=== PATIENT | female | born 2000 | race Caucasian/White ===

== ENCOUNTER 2024-10-16 08:19 | Emergency (ER) | payer BC, OTHER, SELFPAY ==
[2024-10-16 08:29] VITALS: BP 121/67; PULSE 62; RESP 16; TEMP 36.6; O2SAT 99
--- NOTE | 2024-10-16 08:31 | ED_ITS ---
HPI - Female Genitourinary General Chief complaint: Urogenital-Female Stated complaint: UTI SYMPTOMS Time Seen by Provider: 10/16/24 08:31 Source: patient Mode of arrival: ambulatory Limitations: no limitations History of Present Illness HPI Narrative: Aylin is a 23-year-old female patient presenting to the clinic today with complaints of possible UTI. She reports she is having some left-sided low back pain and pelvic pressure. No fevers or chills. States that she does have some associated nausea. Has taken azo for her symptoms. Has had burning, frequency, and urgency x 4 days. Denies any vaginal discharge or odor. Last menstrual period was a week and half ago. She denies any concern for or STIs. No history kidney stones. Related Data Allergies Allergy/AdvReac Type Severity Reaction Status Date / Time steroids AdvReac Intermediate Vomiting Uncoded 10/16/24 08:38 Review of Systems Review of Systems: Pertinent positives per HPI. Patient denies any fever, chills, rash, headache, visual changes, dizziness, cough, runny nose, sore throat, shortness of breath, chest pain, palpitations, vomiting, diarrhea, constipation, abdominal pain, PMFSH Comments At the time of my signature, I reviewed and agree with the nursing past medical, surgical, social, and family history. There is no relevant family history pertinent to the patient complaint. Exam Narrative: General: Well-developed, well nourished, in no apparent distress. Head: Normocephalic, atraumatic. Cardio: Regular rate and rhythm, s1 and s2 normal, no murmur appreciated. Resp: Clear to auscultation bilaterally, no rhonchi, rales, wheezing or rubs. Abdomen: Soft, pliable, bowel sounds present in all quadrants, suprapubic tender to palpation, no organomegly, left CVAT tenderness. Course Course Emergency Course: Portions of this record may have been created with voice recognition software. Level of Care: Express Care Visit Vital Signs Vital signs: Vital Signs Temperature 36.6 C 10/16/24 08:29 Pulse Rate 62 10/16/24 08:29 Respiratory Rate 16 10/16/24 08:29 Blood Pressure 121/67 10/16/24 08:29 Pulse Oximetry 99 10/16/24 08:29 Oxygen Delivery Room Air 10/16/24 08:29 Temperature 36.6 C 10/16/24 08:29 Pulse Rate 62 10/16/24 08:29 Respiratory Rate 16 10/16/24 08:29 Blood Pressure 121/67 10/16/24 08:29 Pulse Oximetry 99 10/16/24 08:29 Oxygen Delivery Room Air 10/16/24 08:29 Vital signs reviewed MDM - Female Genitourinary MDM Narrative Medical decision making narrative: At the time of visit patient is resting comfortably on the exam table. Patient appears to be nontoxic. Labs: Unable to do urine dip is patient has taken azo. We will send urine for culture. Plan: I suspect patient likely has UTI. Prescription for Bactrim was sent to the pharmacy. Urine was sent for culture. Supportive measures were discussed with the patient and they voiced understanding discharge instructions and agrees to treatment plan. Return precautions reviewed Differential Diagnosis Differential diagnosis: Likely urinary tract infection and cystitis Discharge Plan Discharge Clinical Impression: Urinary tract infection Qualifiers: Urinary tract infection type: acute cystitis Hematuria presence: without hematuria Qualified Code(s): N30.00 - Acute cystitis without hematuria Patient Disposition: Home Condition: Stable Instructions: Antibiotic Form, Urinary Tract Infection in Women (ED) Additional Instructions: Unable to test your urine today as you of taken azo. We will send urine for culture Take Bactrim as prescribed Increase fluids and stay well hydrated Wipe front to back. May use wet wipes. Avoid tub baths If sexually active- pee before and after intercourse. Wear cotton panties Avoid tight clothing up against the genitals Follow up with your PCP in 1 week if symptoms persist. Patient Language: Surinamese Prescriptions: New sulfamethoxazole-trimethoprim [Bactrim DS] 800-160 mg tablet 1 tablet PO Q12H 7 Days Qty: 14 0RF Follow-up/Referrals: PHYSICIAN,REAL ESTATE ACQUISITION ANALYST [Primary Care Provider] - Stand Alone Forms: Work/School Release IP Time of Disposition: 08:39 Quality NIHSS Nursing Documentation ED NIHSS nursing documentation: reviewed/agree
== END 2024-10-16 08:41 | disposition home or self-care (01) ==
PROVIDERS: Emergency Provider Nurse Practitioner Family
DX: N30.00 Acute cystitis without hematuria (principal)
CPT/HCPCS: 87086; 99203; G0463